=== PATIENT | female | born 1990 | race Caucasian/White ===

== ENCOUNTER → 2021-12-01 | Outpatient (CLI) | payer OTHER ==
--- NOTE | 2021-12-01 10:54 | RAD ---
XR FOOT_LEFT 3 VIEWS History: Left dorsal midfoot pain after stepping on down stairs. Comparison: None. Technique: 3 nonweightbearing views the left foot. Findings: Osseous mineralization is normal. Suggestion of cortical disruption at the medial cuneiform. Widening of the Lisfranc interval with subtle calcific densities. Dorsal midfoot soft tissue swelling. Impression: 1. Findings concerning for Lisfranc fracture-dislocation of the left foot. Electronically signed by: Conrad Acuña MD (12/01/2021 10:52 AM) [id number]
== END ==
LOC: RAD 10:24
PROVIDERS: ATTEND Physician Assistant
DX: S93.602A Unspecified sprain of left foot, initial encounter (principal); X58.XXXA Exposure to other specified factors, initial encounter; Y93.89 Activity, other specified; Y92.89 Other specified places as the place of occurrence of the external cause; Y99.8 Other external cause status
CPT/HCPCS: 73630

== ENCOUNTER → 2022-01-16 | Outpatient (CLI) | payer OTHER ==
--- NOTE | 2022-01-19 09:07 | RAD ---
LEFT FOOT AP LATERAL [place] Clinical Indication: Reason: F/U FRACTURE Comparison: Left foot, 3 views December 01, 2021. Findings: Fracture of the medial cuneiform is redemonstrated. The Lisfranc joint widening is unchanged. No new fracture is identified. . Mineralization is normal. No bony erosion. There is mild dorsal soft tissue swelling overlying the metatarsals. IMPRESSION: There is nondisplaced fracture of the medial cuneiform with Lis Franc joint widening. Electronically signed by: Henrry Cedeno MD (01/19/2022 9:05 AM) [id number]
== END ==
LOC: RAD 14:28
PROVIDERS: ATTEND Podiatrist
DX: S92.245D Nondisplaced fracture of medial cuneiform of left foot, subsequent encounter for fracture with routine healing (principal); M79.89 Other specified soft tissue disorders; Z68.24 Body mass index [BMI] 24.0-24.9, adult; X58.XXXD Exposure to other specified factors, subsequent encounter
CPT/HCPCS: 73630

== ENCOUNTER → 2022-02-13 | Outpatient (CLI) | payer OTHER ==
--- NOTE | 2022-02-13 15:13 | RAD ---
EXAM: LEFT FOOT 3 VIEWS. HISTORY: Lisfranc injury COMPARISON: 01/16/2022 FINDINGS: Three views of the left foot are obtained. Ossicles within the first-second metatarsal interspace proximally and are consistent with avulsion fr acture fragments associated with a Lisfranc ligament injury. The first interspace remains mildly wide fe to 4 mm, which is stable. A fracture of the medial cuneiform remains nondisplaced. Disuse osteope estrellita is noted. Other joint spaces and alignment are maintained. IMPRESSION: 1. Nondisplaced medial cuneiform fracture still detectable. 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 2. Stable mild widening of the Lisfranc joint consistent with Lisfranc ligament injury. Electronically signed by: Martin Thorpe MD (02/13/2022 3:11 PM) [id number]
== END ==
LOC: RAD 12:44
PROVIDERS: ATTEND Podiatrist
DX: S92.245D Nondisplaced fracture of medial cuneiform of left foot, subsequent encounter for fracture with routine healing (principal); M85.88 Other specified disorders of bone density and structure, other site; M25.872 Other specified joint disorders, left ankle and foot; X58.XXXD Exposure to other specified factors, subsequent encounter
CPT/HCPCS: 73630